=== PATIENT | female | born 1950 | race Caucasian/White ===

== ENCOUNTER → 2017-07-18 | Outpatient (CLI) | payer MEDICARE, BC ==
[~2017-07-18] MED LIST: BUPROPION SR150 MG PO; CHLORTHALIDONE PO; CLARITIN D TAB1 TAB PO; COZAAR100 MG PO; DAZIDOX20 MG PO; DIAZEPAM5 MG PO; DILTIAZEM240 M1 PO; DULERA1 ARO IH; FLONASE NASAL S16 GM NS; FLUTICAS P0.05 MG/AC NS; GABAPENTIN TAB600 MG PO; MS CONTIN 115 MG/TAB PO; MS CONTIN 330 MG/TAB PO; MS CONTIN30 MG PO; MUCINEX 60600 MG/TA1 PO; PERCOCET 325 MG1 TAB PO; PROAIR; SOMA 350MG350 MG/TAB PO; WELLBUTRIN SR150 M1 PO; ZANAFLEX4 M1 PO
== END ==
LOC: MC.RAD 10:59
DX: Z12.31 Encounter for screening mammogram for malignant neoplasm of breast (principal)

== ENCOUNTER → 2020-04-29 | Outpatient (CLI) | payer MEDICARE, OTHER | LOC: COL.RAD 12:39 | DX: M25.551 Pain in right hip (principal) | CPT/HCPCS: J3301; Q9967 ==

== ENCOUNTER 2020-12-27 07:08 | Outpatient (CLI) | payer MEDICARE, OTHER ==
[~2020-12-27] VITALS: Ht 167.6 cm; Wt 103.3 kg
[2020-12-27] MEDS ORDERED: CELEBREX 200MG200 MG PO (08:11)
[2020-12-27] MEDS ORDERED: CLARITIN D TAB1 TAB PO (08:11)
[2020-12-27] MEDS ORDERED: CARDIZEM CD 24240 MG PO (08:12)
[2020-12-27] MEDS ORDERED: DULERA1 ARO IH (08:13)
[2020-12-27] MEDS ORDERED: FLONASEALLERGY NS (08:14)
[2020-12-27] MEDS ORDERED: NEURONTIN600 MG/TAB PO (08:15)
[2020-12-27] MEDS ORDERED: MUCINEX 60600 MG/TA1 PO (08:16)
[2020-12-27] MEDS ORDERED: LEVOXYL0.125 MG PO (08:17)
[2020-12-27] MEDS ORDERED: COZAAR100 MG PO (08:17)
[2020-12-27] MEDS ORDERED: K-DUR20 MEQ PO (08:19)
[2020-12-27] MEDS ORDERED: PROAIR HFA0.09 MG/AC IH (08:20)
[2020-12-27] MEDS ORDERED: VESICARE10 MG PO (08:20)
[2020-12-27] MEDS ORDERED: D3-5050000 IU PO (08:21)
[2020-12-27] MEDS ORDERED: MS CONTIN 115 MG/TAB PO (08:22)
[2020-12-27] MEDS ORDERED: MS CONTIN 330 MG/TAB PO (08:22)
[2020-12-27] MEDS ORDERED: DAZIDOX20 MG PO (08:23)
[2020-12-27] MEDS ORDERED: VITAMIN B125000 MCG PO (08:23)
[2020-12-27] MEDS ORDERED: MAGNESIUM CITR100 MG PO (08:24)
[2020-12-27] MEDS ORDERED: zinc PO (08:26)
[2020-12-27] MEDS ORDERED: VITAMINC1000TA (08:27)
[2020-12-27] MEDS ORDERED: GLUCOSAMINE & C1 CAP PO (08:27)
[2020-12-27] MEDS ORDERED: rose hips PO (08:28)
[2020-12-27 08:52] VITALS: BP 145/83; PULSE 73; TEMP 98.2
[2020-12-27 09:40] VITALS: BP 134/80; PULSE 69
--- NOTE | 2020-12-27 09:40 | NUR ---
Discharge instructions given to pt.Pt verbalizes understanding.INT removed,catheter tip intact.Pt escorted out via wheelchair by this nurse.
[2020-12-27 09:41] LABS: BASO % 0.4 % (0.0-2.0); EOS # 0.4 (0.0-0.7); EOS % 3.9 % (0-4.0); GRAN # 7.4 (1.4-6.5); GRAN % 66.1 % (42.2-75.2); HEMATOCRIT 42.1 % (37.0-47.0); HEMOGLOBIN 13.2 g/dl (12.5-16.0); LYMPH # 2.4 (1.2-3.4); LYMPH % 21.7 % (20.0-51.0); MEAN CELL VOLUME 92 fl (80.0-100.0); MEAN CORPUSCULAR HEMOGLOBIN 29 pg (27.0-31.0); MEAN CORPUSCULAR HGB CONC 31 g/dl (33.0-37.0); MEAN PLATELET VOLUME 9.1 fl (7.4-10.4); MONO # 0.8 (0.1-0.6); MONO % 7.2 % (1.7-9.3); PLATELET COUNT 322 K/mm3 (130-400); RED BLOOD COUNT 4.57 M/mm3 (4.10-5.30); REDCELL DISTRIBUTION WIDTH-CV 14.9 % (11.5-14.5)
[2020-12-27 09:45] VITALS: BP 132/88; PULSE 70
[2020-12-27 10:00] VITALS: BP 138/80; PULSE 66
[2020-12-27 10:15] VITALS: BP 133/81; PULSE 67
[2020-12-27 10:27] VITALS: BP 114/74; PULSE 68
== END 2020-12-27 11:12 | disposition home or self-care (01) ==
LOC: SDCO 07:08
PROVIDERS: Pathology Anatomic Pathology & Clinical Pathology
DX: D47.2 Monoclonal gammopathy (principal); E03.9 Hypothyroidism, unspecified; I10 Essential (primary) hypertension; M54.9 Dorsalgia, unspecified; M79.7 Fibromyalgia; G89.29 Other chronic pain; G43.909 Migraine, unspecified, not intractable, without status migrainosus; J45.909 Unspecified asthma, uncomplicated; F32.9 Major depressive disorder, single episode, unspecified; Z79.899 Other long term (current) drug therapy; Z79.890 Hormone replacement therapy; Z79.891 Long term (current) use of opiate analgesic; Z88.2 Allergy status to sulfonamides; Z88.1 Allergy status to other antibiotic agents; Z88.6 Allergy status to analgesic agent; Z80.9 Family history of malignant neoplasm, unspecified
CPT/HCPCS: J2704; J7030